=== PATIENT | male | born 1970 | race Caucasian/White ===

== ENCOUNTER → 2018-10-13 14:43 | Outpatient (CLI) | payer OTHER, SELFPAY ==
[2018-10-04 15:45] VITALS: BMI 21.7
--- NOTE | 2018-10-13 14:50 | ECHOL_ITS ---
Reason For Study: DYSPNEA Procedure This was a limited 2D transthoracic echocardiogram. Exam performed in department. Left Ventricle Normal LV size. The estimated ejection fraction is 38 %. There is mild to moderate global hypokinesis of the left ventricle. Right Ventricle Normal RV size. Normal systolic function. Atria Normal left atrium. Normal right atrium. Mitral Valve Normal mitral valve. Mild (1+) eccentric mitral valve insufficiency. Tricuspid Valve Normal tricuspid valve. Aortic Valve Normal aortic valve. Trisinus/trileaflet aortic valve. Pulmonic Valve Normal pulmonic valve. Great Vessels Normal aortic root. The pulmonary artery is normal size. Normal inferior vena cava. Pericardium/Pleural No pericardial effusion. MMode/2D Measurements & Calculations LVIDd: 5.8 cm IVSd: 0.65 cm LAV(MOD-sp4): 65.9 ml LVIDs: 4.9 cm LVPWd: 0.89 cm FS: 16.1 % LVAd ap4: 36.5 cm2 SV(MOD-sp4): 44.2 ml SV(sp4-el): 45.7 ml EDV(MOD-sp4): 132.6 ml EDV(sp4-el): 134.0 ml LVAs ap4: 27.5 cm2 ESV(MOD-sp4): 88.4 ml ESV(sp4-el): 88.3 ml EF(MOD-sp4): 33.4 % EF(sp4-el): 34.1 % LA A4 area: 21.5 cm2 RA A4 area: 17.6 cm2 Interpretation Summary Normal LV size. The estimated ejection fraction is 38 %. Compared to previous study, the left ventricular systolic function has improved.. Ordering Physician: Pierre Silva Referring Physician: LOUIS BECERRA Performed By: Maritza Blankenship, ANAI, RVT
== END ==
PROVIDERS: Family Provider Family Medicine; PCP Family Medicine; Referring Provider Internal Medicine Cardiovascular Disease; Visit Provider Internal Medicine Cardiovascular Disease
DX: I42.8 Other cardiomyopathies (principal)
CPT/HCPCS: 93308

== ENCOUNTER → 2020-07-30 14:43 | Outpatient (CLI) | payer SELFPAY ==
[2020-05-29 12:03] VITALS: BMI 22.8
--- NOTE | 2020-07-30 14:46 | ECHOL_ITS ---
Reason For Study: CMP Procedure This was a 2D Doppler, Color Flow transthoracic echocardiogram. Exam performed in department. Left Ventricle Moderately dilated left ventricle. Cannot exclude ventricular noncompaction. Severe global left ventricular systolic dysfunction. The estimated ejection fraction is 20 %. There is severe global hypokinesis of the left ventricle. Right Ventricle Normal RV size. Normal systolic function. Atria Normal left atrium. Normal right atrium. Mitral Valve Normal mitral valve. Tricuspid Valve Normal tricuspid valve. Aortic Valve Normal aortic valve. Trisinus/trileaflet aortic valve. Pulmonic Valve The pulmonic valve is not well visualized. Great Vessels Normal aortic root. The pulmonary artery is normal size. Normal inferior vena cava. Pericardium/Pleural No pericardial effusion. MMode/2D Measurements & Calculations LVIDd: 6.2 cm IVSd: 0.84 cm LA dimension: 3.4 cm LVIDs: 5.4 cm LVPWd: 1.1 cm FS: 12.8 % LAV(MOD-sp4): 52.3 ml LVAd ap4: 35.9 cm2 SV(MOD-sp4): 44.2 ml EDV(MOD-sp4): 137.9 ml EDV(sp4-el): 139.2 ml LVAs ap4: 27.8 cm2 ESV(MOD-sp4): 93.7 ml ESV(sp4-el): 96.0 ml EF(MOD-sp4): 32.1 % EF(sp4-el): 31.0 % SV(sp4-el): 43.1 ml LA A4 area: 19.8 cm2 RA A4 area: 11.5 cm2 Doppler Measurements & Calculations Lat Peak E' Alfie: 13.5 cm/sec Med Peak E' Alfie: 10.8 cm/sec PA V2 max: 84.7 cm/sec Interpretation Summary Moderately dilated left ventricle. Severe global left ventricular systolic dysfunction. The estimated ejection fraction is 20 %. Cannot exclude ventricular noncompaction Compared to previous study, the left ventricular systolic function has worsened.. Ordering Physician: Saige Iverson Referring Physician: German Hart Performed By: Velasquez Pascal RCS
== END ==
PROVIDERS: PCP Family Medicine; Referring Provider Internal Medicine Cardiovascular Disease; Visit Provider Internal Medicine Cardiovascular Disease
DX: I42.8 Other cardiomyopathies (principal)
CPT/HCPCS: 93308

== ENCOUNTER → 2021-07-28 11:34 | Outpatient (CLI) | payer SELFPAY ==
--- NOTE | 2021-07-28 11:37 | RAD_ITS ---
STUDY: X-RAY CHEST REASON FOR EXAM: Male, 50 years old. SOB, cough TECHNIQUE: PA and lateral views of the chest. COMPARISON: 04/27/2016 FINDINGS: Lungs are expanded with superimposed interstitial and airspace opacifications at both lung torrez without effusions. This pattern of opacification suggests Covid pneumonia. Normal size heart. Normal mediastinum and bri. Normal visualized pulmonary arteries. Normal visualized aortic arch and descending thoracic aorta. Normal visualized thoracic spine. Normal visualized ribs, clavicles, and shoulders. There is no demonstrated abnormality of the visualized soft tissue structures of the upper abdomen. RAD/Chest PA and Lateral IMPRESSION: Interstitial and airspace opacifications at both lung torrez without effusions. Follow-up recommended to ensure resolution Electronically Signed: Scottie Callejas MD at 16:53 EST , Service support ,
== END ==
PROVIDERS: PCP Family Medicine; Referring Provider Nurse Practitioner Family; Visit Provider Nurse Practitioner Family
DX: R06.00 Dyspnea, unspecified (principal); R06.02 Shortness of breath; R05.9 Cough, unspecified
CPT/HCPCS: 71046

== ENCOUNTER 2021-09-02 15:08 | Outpatient (CLI) | payer SELFPAY, OTHER ==
--- NOTE | 2021-09-02 15:16 | RAD_ITS ---
STUDY: X-RAY CHEST REASON FOR EXAM: Male, 51 years old. CHEST PAIN GARCIA TECHNIQUE: XR Chest 2 Views COMPARISON: 07.28.21 FINDINGS: Right pleural effusion. Normal size heart. Normal mediastinum and bri. Normal visualized pulmonary arteries. Normal visualized aortic arch and descending thoracic aorta. There are diffuse degenerative changes of the visualized thoracic spine. There is degenerative osteoarthritis of the bilateral shoulders. There is no demonstrated abnormality of the visualized soft tissue structures of the upper abdomen. RAD/Chest PA and Lateral IMPRESSION: Right pleural effusion. Electronically Signed: Paul Rdz MD at 17:11 EST , Service support ,
[2021-09-02 16:28] LABS: Anion Gap 8 (5-15); BUN 22 mg/dL (7-18); BUN/Creat Ratio 20.6 RATIO (10-20); Calcium,Total 8.6 mg/dL (8.5-10.1); Chloride 101 mmol/L (98-107); Creatinine, Serum 1.07 mg/dL (0.70-1.30); EST Glomerular Filtration Rate 77 mL/min (>60); Est Glom Filt Rate - Afr Amer 93 mL/min (>60); Glucose 102 mg/dL (74-106); Potassium 4.2 mmol/L (3.5-5.1); Sodium Level 139 mmol/L (136-145); Thyroid Stim Hormone (TSH) 5.53 uIU/mL (0.358-3.74)
== END 2021-09-02 23:59 | disposition short-term general hospital (02) ==
PROVIDERS: PCP Family Medicine; Referring Provider Physician Assistant Medical; Visit Provider Physician Assistant Medical
DX: R06.00 Dyspnea, unspecified (principal); I42.8 Other cardiomyopathies; I49.49 Other premature depolarization; E78.5 Hyperlipidemia, unspecified
CPT/HCPCS: 36415; 71046; 80048; 84443

== ENCOUNTER 2021-09-22 07:56 | Outpatient (CLI) | payer SELFPAY, OTHER ==
--- NOTE | 2021-09-22 08:01 | ECHOD_ITS ---
Reason For Study: DYSPNEA/SOB Procedure This was a 2D Doppler, Color Flow transthoracic echocardiogram. Exam performed in department. Dr. Silva notified of decrease in the EF. Left Ventricle Moderately dilated left ventricle. Ventricular noncompaction noted involving the apex. The estimated ejection fraction is 10 %. Severe global left ventricular systolic dysfunction. There is severe global hypokinesis of the left ventricle. Right Ventricle Normal RV size. Moderate global right ventricular systolic dysfunction. Atria The left atrium is moderately enlarged. The right atrium is moderately enlarged. Mitral Valve Normal mitral valve. Mild-Moderate (1-2+) eccentric mitral valve insufficiency. Tricuspid Valve Normal tricuspid valve. Mild to moderate (1-2+) tricuspid valve insufficiency. Pulmonary artery systolic pressure is 39 mmHg. Aortic Valve Normal aortic valve. Trisinus/trileaflet aortic valve. Pulmonic Valve Normal pulmonic valve. Mild pulmonic valve insufficiency identified. Great Vessels Normal aortic root. The pulmonary artery is normal size. The inferior vena cava is dilated. Pericardium/Pleural No pericardial effusion. MMode/2D Measurements & Calculations LVIDd: 6.3 cm IVSd: 0.97 cm Ao root diam: 2.6 cm LVIDs: 5.8 cm LVPWd: 0.85 cm RVDd: 3.5 cm FS: 8.9 % LAV(MOD-bp): 90.1 ml LA A4 area: 25.3 cm2 LA dimension(2D): 4.6 cm LAV(MOD-bp) Indexed: 45.9 ml/m2 LAV(MOD-sp2): 95.2 ml LAV(MOD-sp4): 77.5 ml RA A4 area: 26.2 cm2 Time Measurements MV dec time: 0.17 sec Doppler Measurements & Calculations MV E max johnny: 61.4 cm/sec Ao V2 max: 61.8 cm/sec LV V1 max: 48.1 cm/sec MV A max johnny: 22.6 cm/sec Ao max P.5 mmHg LV V1 max P.94 mmHg MV E/A: 2.7 MR max johnny: 363.7 cm/sec PA V2 max: 53.9 cm/sec TR max johnny: 292.6 cm/sec MR max P.9 mmHg TR max P.2 mmHg ECHO/Echo Complete Interpretation Summary Moderately dilated left ventricle. The estimated ejection fraction is 10 %. Severe global left ventricular systolic dysfunction. Ventricular noncompaction noted involving the apex Mild-Moderate (1-2+) eccentric mitral valve insufficiency. Pulmonary artery systolic pressure is 39 mmHg. The global longitudinal strain is severely abnormal. The global longitudinal st rain = -5% (abnormal). Compared to previous study, the left ventricular systolic function has worsened.. Ordering Physician: Saige Iverson Referring Physician: German Hart Performed By: Gin Mancera, ANGELINACS, RVT
== END 2021-09-22 23:59 | disposition short-term general hospital (02) ==
PROVIDERS: PCP Family Medicine; Referring Provider Physician Assistant Medical; Visit Provider Physician Assistant Medical
DX: R06.00 Dyspnea, unspecified (principal); I42.8 Other cardiomyopathies; I49.49 Other premature depolarization; E78.5 Hyperlipidemia, unspecified
CPT/HCPCS: 93225; 93226; 93306

== ENCOUNTER 2021-12-18 12:09 | Outpatient (RCR) | payer OTHER, SELFPAY ==
[2021-11-28 11:17] LABS: ALB/GLOB Ratio 0.7 RATIO (0.9-2.4); AST(SGOT) 23 U/L (15-37); Alanine Aminotransfer ALT/SGPT 32 U/L (16-61); Albumin, Serum 2.6 g/dL (3.2-5.0); Alkaline Phosphatase 78 U/L (45-117); Anion Gap 7 (5-15); BUN 55 mg/dL (7-18); BUN/Creat Ratio 20.2 RATIO (10-20); Calcium,Total 8.3 mg/dL (8.5-10.1); Chloride 105 mmol/L (98-107); Creatinine, Serum 2.72 mg/dL (0.70-1.30); EST Glomerular Filtration Rate 26 mL/min (>60); Est Glom Filt Rate - Afr Amer 32 mL/min (>60); Globulin 3.7 g/dL (2.2-4.2); Glucose 118 mg/dL (74-106); Potassium 4.3 mmol/L (3.5-5.1); Protein, Total 6.3 g/dL (6.4-8.2); Sodium Level 135 mmol/L (136-145)
[2021-12-04 18:26] LABS: Anion Gap 6 (5-15); BUN 51 mg/dL (7-18); BUN/Creat Ratio 22.8 RATIO (10-20); Calcium,Total 8.5 mg/dL (8.5-10.1); Chloride 107 mmol/L (98-107); Creatinine, Serum 2.24 mg/dL (0.70-1.30); EST Glomerular Filtration Rate 33 mL/min (>60); Est Glom Filt Rate - Afr Amer 40 mL/min (>60); Glucose 74 mg/dL (74-106); Potassium 4.1 mmol/L (3.5-5.1); Sodium Level 136 mmol/L (136-145)
[2021-12-11 14:47] LABS: Hematocrit 26.8 % (40-54); Hemoglobin 8.6 g/dL (13.0-16.5); Mean Corp Hgb Conc 32.1 g/dL (32-36); Mean Corpuscular Hgb 30.9 pg (27.0-32.0); Mean Corpuscular Volume 96.4 fL (80-94); Mean Platelet Vol. 11.5 fl (6.2-12.0); Platelet Count 142 K/mm3 (150-450); RBC Distribution Width CV 16.1 % (11.6-14.6); RBC Distribution Width SD 57.3 fl (35.1-43.9); Red Blood Count 2.78 M/mm3 (4.6-6.2); White Blood Count 6.7 K/mm3 (4.4-11.0)
[2021-12-11 15:01] LABS: ALB/GLOB Ratio 0.8 RATIO (0.9-2.4); AST(SGOT) 17 U/L (15-37); Alanine Aminotransfer ALT/SGPT 25 U/L (16-61); Alkaline Phosphatase 74 U/L (45-117); Anion Gap 6 (5-15); BUN 46 mg/dL (7-18); BUN/Creat Ratio 22.8 RATIO (10-20); Calcium,Total 8.9 mg/dL (8.5-10.1); Chloride 108 mmol/L (98-107); Creatinine, Serum 2.02 mg/dL (0.70-1.30); EST Glomerular Filtration Rate 37 mL/min (>60); Est Glom Filt Rate - Afr Amer 45 mL/min (>60); Globulin 3.9 g/dL (2.2-4.2); Glucose 119 mg/dL (74-106); Potassium 4.6 mmol/L (3.5-5.1); Protein, Total 6.9 g/dL (6.4-8.2); Sodium Level 137 mmol/L (136-145)
[2021-12-18 13:12] LABS: ALB/GLOB Ratio 0.9 RATIO (0.9-2.4); AST(SGOT) 20 U/L (15-37); Alanine Aminotransfer ALT/SGPT 28 U/L (16-61); Alkaline Phosphatase 62 U/L (45-117); Anion Gap 4 (5-15); BUN 44 mg/dL (7-18); BUN/Creat Ratio 22.3 RATIO (10-20); Calcium,Total 8.3 mg/dL (8.5-10.1); Chloride 110 mmol/L (98-107); Creatinine, Serum 1.97 mg/dL (0.70-1.30); EST Glomerular Filtration Rate 38 mL/min (>60); Est Glom Filt Rate - Afr Amer 46 mL/min (>60); Globulin 3.5 g/dL (2.2-4.2); Glucose 84 mg/dL (74-106); Potassium 4.1 mmol/L (3.5-5.1); Protein, Total 6.5 g/dL (6.4-8.2); Sodium Level 139 mmol/L (136-145)
== END 2021-12-18 18:00 | disposition home or self-care (01) ==
LOC: HHLAB 12:09
PROVIDERS: PCP Family Medicine; Referring Provider Family Medicine; Visit Provider Family Medicine
DX: I50.23 Acute on chronic systolic (congestive) heart failure (principal); K81.9 Cholecystitis, unspecified
CPT/HCPCS: 80048; 80053; 85027

== ENCOUNTER → 2022-01-01 | Outpatient (CLI) | payer OTHER, SELFPAY ==
[2022-01-01 11:57] LABS: Hemoglobin 8.9 g/dL (13.0-16.5); Mean Corp Hgb Conc 31.8 g/dL (32-36); Mean Corpuscular Hgb 30.5 pg (27.0-32.0); Mean Corpuscular Volume 95.9 fL (80-94); Mean Platelet Vol. 9.8 fl (6.2-12.0); Platelet Count 240 K/mm3 (150-450); RBC Distribution Width CV 15.1 % (11.6-14.6); RBC Distribution Width SD 53.3 fl (35.1-43.9); Red Blood Count 2.92 M/mm3 (4.6-6.2); White Blood Count 6.6 K/mm3 (4.4-11.0)
[2022-01-01 12:06] LABS: ALB/GLOB Ratio 0.8 RATIO (0.9-2.4); AST(SGOT) 19 U/L (15-37); Alanine Aminotransfer ALT/SGPT 34 U/L (16-61); Albumin, Serum 3.1 g/dL (3.2-5.0); Alkaline Phosphatase 62 U/L (45-117); Anion Gap 4 (5-15); BUN 36 mg/dL (7-18); BUN/Creat Ratio 20.2 RATIO (10-20); Calcium,Total 8.8 mg/dL (8.5-10.1); Chloride 109 mmol/L (98-107); Creatinine, Serum 1.78 mg/dL (0.70-1.30); EST Glomerular Filtration Rate 43 mL/min (>60); Est Glom Filt Rate - Afr Amer 52 mL/min (>60); Globulin 3.8 g/dL (2.2-4.2); Glucose 92 mg/dL (74-106); Potassium 4.4 mmol/L (3.5-5.1); Protein, Total 6.9 g/dL (6.4-8.2); Sodium Level 139 mmol/L (136-145)
== END | disposition home or self-care (01) ==
LOC: LAB 08:06
PROVIDERS: PCP Family Medicine; Referring Provider Family Medicine; Visit Provider Family Medicine
DX: I50.23 Acute on chronic systolic (congestive) heart failure (principal)
CPT/HCPCS: 36415; 80053; 85027

== ENCOUNTER → 2022-01-07 | Outpatient (CLI) | payer SELFPAY ==
[2022-01-07 11:33] LABS: Hematocrit 29.6 % (40-54); Hemoglobin 9.4 g/dL (13.0-16.5); Mean Corp Hgb Conc 31.8 g/dL (32-36); Mean Corpuscular Hgb 30.8 pg (27.0-32.0); Platelet Count 213 K/mm3 (150-450); RBC Distribution Width CV 14.9 % (11.6-14.6); RBC Distribution Width SD 52.7 fl (35.1-43.9); Red Blood Count 3.05 M/mm3 (4.6-6.2); White Blood Count 8.1 K/mm3 (4.4-11.0)
[2022-01-07 11:45] LABS: ALB/GLOB Ratio 0.8 RATIO (0.9-2.4); AST(SGOT) 20 U/L (15-37); Alanine Aminotransfer ALT/SGPT 39 U/L (16-61); Albumin, Serum 3.4 g/dL (3.2-5.0); Alkaline Phosphatase 62 U/L (45-117); Anion Gap 5 (5-15); BUN 31 mg/dL (7-18); BUN/Creat Ratio 18.2 RATIO (10-20); Calcium,Total 9.1 mg/dL (8.5-10.1); Chloride 107 mmol/L (98-107); EST Glomerular Filtration Rate 45 mL/min (>60); Est Glom Filt Rate - Afr Amer 55 mL/min (>60); Glucose 92 mg/dL (74-106); Protein, Total 7.4 g/dL (6.4-8.2); Sodium Level 139 mmol/L (136-145)
== END | disposition home or self-care (01) ==
LOC: LAB 08:16
PROVIDERS: PCP Family Medicine; Referring Provider Family Medicine; Visit Provider Family Medicine
DX: I50.33 Acute on chronic diastolic (congestive) heart failure (principal)
CPT/HCPCS: 36415; 80053; 85027